=== PATIENT | male | born 1970 | race Caucasian/White ===

== ENCOUNTER 2018-08-30 09:47 | Emergency (ER) | payer OTHER ==
[2018-08-30] MEDS ORDERED: Ondansetron 4 MG Tab.DIS PO ONE (10:03)
[2018-08-30] MEDS ORDERED: HYDROmorphone 2 MG/ML SDV IM ONE (10:04)
[2018-08-30] MEDS ORDERED: HYDROmorphone 2 MG/ML Syringe ONE (10:09)
[2018-08-30] MEDS ORDERED: Acetaminophen/Butalbital/Caffeine 325-50-40 MG Tab PO ONE (10:47)
--- NOTE | 2018-08-30 10:55 | EDM.PDOC ---
ED HPI GENERAL MEDICAL PROBLEM - General Chief Complaint: Headache Stated Complaint: MIGRAINE Time Seen by Provider: 08/30/18 09:57 Source of Information: Reports: Patient History Limitations: Reports: No Limitations - History of Present Illness INITIAL COMMENTS - FREE TEXT/NARRATIVE: History of present illness: []Patient was sent over from the [place] for chronic headaches. Patient has chronic headaches and states this is no different from previous. He was in the clinic yesterday and received Toradol. He returned to the [place] clinic today but they refused to treat him and sent him to the ED. patient denies any sinus congestion , vomiting, blurry vision, fevers, chills, neck pain or numbness or tingling. Review of systems: As per history of present illness and below otherwise all systems reviewed and negative. Past medical history: As per history of present illness and as reviewed below otherwise noncontributory. Surgical history: As per history of present illness and as reviewed below otherwise noncontributory. Social history: No reported history of drug or alcohol abuse. Family history: As per history of present illness and as reviewed below otherwise noncontributory. Physical exam: General: Well developed, well nourished in NAD HEENT: Atraumatic, normocephalic, pupils reactive, negative for conjunctival pallor or scleral icterus, mucous membranes moist, throat clear, neck supple, no rigidity nontender, trachea midline.TMs clear no sinus tenderness Lungs: Clear to auscultation, breath sounds equal bilaterally, chest nontender. Heart: S1S2, regular, negative for clicks, rubs, or JVD. Abdomen: NABS, Soft, nondistended, nontender. Negative for masses or hepatosplenomegaly. Negative for costovertebral tenderness. Pelvis: Stable nontender. Genitourinary: Deferred. Rectal: Deferred. Extremities: Atraumatic, negative for cords or calf pain. Neurovascular unremarkable. Neuro: Awake, alert, oriented. Cranial nerves II through XII unremarkable. Cerebellum unremarkable. Motor and sensory unremarkable throughout. Exam nonfocal. Skin:warm and dry Diagnostics: None Therapeutics: Dilaudid, Fioricet, Zofran ED Course: stable Impression: Chronic stable daily headache Prescriptions: None Plan: Follow-up with primary care continue [id number] meds or if symptoms worsen or change Definitive disposition and diagnosis as appropriate pending reevaluation and review of above. middle/lower back Pain Score (Numeric/FACES): 9 headache Pain Score (Numeric/FACES): 9 - Related Data Allergies Allergy/AdvReac Type Severity Reaction Status Date / Time No Known Allergies Allergy Verified 08/03/15 09:04 Home Meds: Home Meds Naproxen 500 mg PO DAILY 08/30/18 [History] Omeprazole 20 mg PO DAILY 08/30/18 [History] Sertraline HCl 100 mg PO DAILY 08/30/18 [History] Past Medical History Musculoskeletal History: Reports: Back Pain, Chronic, Other (See Below) Other Musculoskeletal History: previous back trauma from service - Past Surgical History Musculoskeletal Surgical History: Reports: Other (See Below) Other Musculoskeletal Surgeries/Procedures:: 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 - Physical Exam Exam: See Below (See history of present illness) Course - Vital Signs Last Recorded V/S: Last Vital Signs Temp 97.0 F 08/30/18 11:10 Pulse 72 08/30/18 11:10 Resp 17 08/30/18 11:10 BP 131/95 H 08/30/18 11:10 Pulse Ox 92 L 08/30/18 11:10 - Orders/Labs/Meds Meds: Medications Discontinued Medications Generic Name Dose Route Start Last Admin Trade Name Deondre PRN Reason Stop Dose Admin Acetaminophen/Butalbital/Caffeine 2 tab 08/30/18 10:47 08/30/18 10:55 Fioricet 325-50-40 Mg PO 08/30/18 10:48 2 tab ONETIME ONE Administration Hydromorphone HCl 1 mg 08/30/18 10:04 08/30/18 10:15 Dilaudid IM 08/30/18 10:05 1 mg ONETIME ONE Administration Hydromorphone HCl Confirm 08/30/18 10:09 08/30/18 10:20 Dilaudid Administered 08/30/18 10:10 Not Given Dose 2 mg .ROUTE .STK-MED ONE Ondansetron HCl 4 mg 08/30/18 10:03 08/30/18 10:15 Zofran Odt PO 08/30/18 10:04 4 mg ONETIME ONE Administration Departure - Departure Time of Disposition: 11:50 Disposition: Home, Self-Care 01 Condition: Good Clinical Impression: Chronic daily headache - Discharge Information *PRESCRIPTION DRUG MONITORING PROGRAM REVIEWED*: No *COPY OF PRESCRIPTION DRUG MONITORING REPORT IN PATIENT LIA: No Instructions: Recurrent Migraine Headache, [id number] Referrals: PCP,None [Primary Care Provider] - Forms: ED Department Discharge Additional Instructions: The following information is given to patients seen in the emergency department who are being discharged to home. This information is to outline your options for follow-up care. We provide all patients seen in our emergency department with a follow-up referral. The need for follow-up, as well as the timing and circumstances, are variable depending upon the specifics of your emergency department visit. If you don't have a primary care physician on staff, we will provide you with a referral. We always advise you to contact your personal physician following an emergency department visit to inform them of the circumstance of the visit and for follow-up with them and/or the need for any referrals to a consulting specialist. The emergency department will also refer you to a specialist when appropriate. This referral assures that you have the opportunity for follow-up care with a specialist. All of these measure are taken in an effort to provide you with optimal care, which includes your follow-up. Under all circumstances we always encourage you to contact your private physician who remains a resource for coordinating your care. When calling for follow-up care, please make the office aware that this follow-up is from your recent emergency room visit. If for any reason you are refused follow-up, please contact the [facility] Emergency Department at and asked to speak to the emergency department charge nurse. [facility] [address] [place] [id number]
[2018-08-30 11:17] VITALS: BP 131/95
== END 2018-08-30 11:12 | disposition home or self-care (01) ==
LOC: MW.ED 09:47
DX: R51 Headache (principal); M54.5 Low back pain; Z79.899 Other long term (current) drug therapy
CPT/HCPCS: 96374; 99283; A9270; J1170

== ENCOUNTER 2022-07-20 15:10 | Emergency (ER) | payer OTHER ==
[2022-07-20] MEDS ORDERED: LORazepam 2 MG/ML SDV IVPUSH ONE (15:35)
[2022-07-20] MEDS ORDERED: Sodium Chloride 0.9% 1,000 ML IV ONE (15:35)
[2022-07-20] MEDS ORDERED: Ondansetron 4 MG/2 ML SDV IVPUSH ONE (15:37)
[2022-07-20] MEDS ORDERED: Ketorolac 30 MG/ML SDV IVPUSH ONE (15:37)
[2022-07-20 17:10] VITALS: BP 138/100; PULSE 78
== END 2022-07-20 17:09 | disposition home or self-care (01) ==
LOC: MW.ED 15:10
DX: G44.209 Tension-type headache, unspecified, not intractable (principal); K21.9 Gastro-esophageal reflux disease without esophagitis; Z79.899 Other long term (current) drug therapy; Z86.16 Personal history of COVID-19
CPT/HCPCS: 96361; 96374; 96375; 99283; J1885; J2060; J2405; J7030; 99284

== ENCOUNTER 2023-01-10 09:20 | Emergency (ER) | payer OTHER ==
[2023-01-10] MEDS ORDERED: Ketorolac 30 MG/ML SDV IM ONE (09:31)
[2023-01-10 10:06] VITALS: BP 181/137; PULSE 83
== END 2023-01-10 10:06 | disposition home or self-care (01) ==
LOC: MW.ED 09:20
DX: G43.909 Migraine, unspecified, not intractable, without status migrainosus (principal); I10 Essential (primary) hypertension; K21.9 Gastro-esophageal reflux disease without esophagitis; Z86.16 Personal history of COVID-19; Z79.899 Other long term (current) drug therapy
CPT/HCPCS: 96372; 99283; J1885